=== PATIENT | male | born 1975 | race Caucasian/White ===

== ENCOUNTER 2018-09-10 17:26 | Emergency (ER) | payer MEDICAID ==
[~2018-09-10] VITALS: Ht 167.6 cm; Wt 81.9 kg
[~2018-09-10 17:26] MED LIST: IBUP-1542 PO
[2018-09-10 18:34] VITALS: Ht 167.6 cm; Wt 81.9 kg
[2018-09-10] MEDS ORDERED: KETOROLAC 60 MG INJ IM STA (21:23)
[2018-09-10] MEDS ORDERED: DEXAMETHASONE 10 MG/ML 1 ML INJ IM ONE (21:30)
[2018-09-10] MEDS ORDERED: traMADol 50 MG TAB PO ONE (21:30)
[2018-09-10] MEDS ORDERED: NAPR-985 PO (22:45)
[2018-09-10] MEDS ORDERED: AMOX1TAB10 PO (22:45)
[2018-09-10 23:01] VITALS: BP 123/78; PULSE 57; RESP 18
--- NOTE | 2018-09-11 00:20 | ERD ---
ER Documentation Chief Complaint Chief Complaint STATES LT JAW PAIN AND FEELS HOT SINCE YESTERDAY HPI History of Present Illness: 43-year-old male with no past medical history coming in today with complaint of left sided face pain. Patient reports he fell at his inside of his mouth is warm since yesterday. Denies decreased range of motion with jaw. No drooling noted. Denies chills. Denies chest pain, palpitations, shortness of breath. At home pharmacological/nonpharmacological treatment for symptoms: Denies Denies social concerns; Denies recent foreign travel ROS All systems reviewed and are negative except as per history of present illness. Medications Home Meds Active Scripts Amoxicillin/Potassium Clav (Amox-Clav 875-125 mg Tablet) 875-125 mg Tab, 1 TAB PO BID for BUCCAL INFECTION for 7 Days, #14 TAB Prov:HILARIO LUNA NP 09/10/18 Naproxen* (Naprosyn*) 500 Mg Tablet, 500 MG PO BID PRN for PAIN AND/OR INFLAMMATION, #30 TAB Prov:HILARIO LUNA NP 09/10/18 Ibuprofen* (Motrin*) 600 Mg Tab, 600 MG PO Q6, #30 TAB Prov:GLENN VALLE 05/11/15 Allergies Allergies: Coded Allergies: No Known Allergy (Unverified , 05/11/15) PMhx/Soc Medical and Surgical Hx: pt denies Medical Hx, pt denies Surgical Hx History of Surgery: No Hx Neurological Disorder: No Hx Respiratory Disorders: No Hx Cardiac Disorders: No Hx Psychiatric Problems: No Hx Miscellaneous Medical Probl: No Hx Alcohol Use: No Hx Substance Use: No Hx Tobacco Use: No Smoking Status: Never smoker FmHx Family History: diabetes; No coronary disease Physical Exam Vitals Vital Signs Date Temp Pulse Resp B/P (MAP) Pulse Ox O2 O2 Flow FiO2 Time Delivery Rate 09/10/18 98.5 57 18 123/78 98 Room Air 23:01 (93) 09/10/18 97.6 65 18 124/77 98 18:34 (93) Physical Exam Const: No acute distress Head: Atraumatic Eyes: Normal Conjunctiva ENT: Normal External Ears, Nose; tenderness to palpation to left bugle space inside of mouth, mild erythema, no cellulitis, no warmth, no fluctuance Neck: Full range of motion. No meningismus. Resp: Clear to auscultation bilaterally Cardio: Regular rate and rhythm, no murmurs Abd: Soft, non tender, non distended. Normal bowel sounds Skin: No petechiae or rashes Back: No midline or flank tenderness Ext: No cyanosis, or edema Neur: Awake and alert Psych: Normal Mood and Affect Results 24 hrs Current Medications Medications Dose Sig/Alphonso Start Time Status Last (Trade) Ordered Route PRN Stop Time Admin Dose Reason Admin 10 mg ONCE ONCE 09/10/18 DC 09/10/18 Dexamethasone IM 21:30 09/10/18 21:29 (Decadron) 21:31 Ketorolac 60 mg ONCE STAT 09/10/18 DC 09/10/18 Tromethamine IM 21:23 09/10/18 21:29 (Toradol) 21:25 Tramadol 50 mg ONCE ONCE 09/10/18 DC 09/10/18 HCl PO 21:30 09/10/18 21:30 (Ultram) 21:31 Procedures/MDM ED course includes a thorough examination and history. Medications: Ketorolac, dexamethasone Imaging: Labs: Low suspicion for life-threatening medical emergency. Low suspicion for infectious emergency that requires hospitalization or immediate surgical intervention. Low suspicion for Ajit angina. Low suspicion for deep tissue infection. Otherwise healthy patient presenting with constellation of symptoms likely representing uncomplicated mouth infection/canker sore as characterized by history, physical exam findings. Patient reassessment: Patient hemodynamically stable. No respiratory distress, otherwise relatively well appearing and nontoxic. Disposition given. Patient educated on diagnoses, prescriptions, follow-up care, return precautions. Strict return precautions given for worsening condition; questions answered discharge. Disposition for discharge with followup in 2 days with PCP/clinic. Departure Diagnosis: Primary Impression: Infection of buccal space Condition: Stable Patient Instructions: Your Mouth: Keeping It Healthy Referrals: COMMUNITY CLINICS YOU HAVE RECEIVED A MEDICAL SCREENING EXAM AND THE RESULTS INDICATE THAT YOU DO NOT HAVE A CONDITION THAT REQUIRES URGENT TREATMENT IN THE EMERGENCY DEPARTMENT. FURTHER EVALUATION AND TREATMENT OF YOUR CONDITION CAN WAIT UNTIL YOU ARE SEEN IN YOUR DOCTORS OFFICE WITHIN THE NEXT 1-2 DAYS. IT IS YOUR RESPONSIBILITY TO MAKE AN APPOINTMENT FOR FOLOW-UP CARE. IF YOU HAVE A PRIMARY DOCTOR --you should call your primary doctor and schedule an appointment IF YOU DO NOT HAVE A PRIMARY DOCTOR YOU CAN CALL OUR PHYSICIAN REFERRAL HOTLINE AT IF YOU CAN NOT AFFORD TO SEE A PHYSICIAN YOU CAN CHOSE FROM THE FOLLOWING [facility] [address] [facility] [address] [facility] [address] [facility] [facility] [address] [facility] [facility] [address] [facility]. [facility] [address] [facility]. [facility] YOU HAVE RECEIVED A MEDICAL SCREENING EXAM AND THE RESULTS INDICATE THAT YOU DO NOT HAVE A CONDITION THAT REQUIRES URGENT TREATMENT IN THE EMERGENCY DEPARTMENT. FURTHER EVALUATION AND TREATMENT OF YOUR CONDITION CAN WAIT UNTIL YOU ARE SEEN IN YOUR DOCTORS OFFICE WITHIN THE NEXT 1-2 DAYS. IT IS YOUR RESPONSIBILITY TO MAKE AN APPOINTMENT FOR FOLOW-UP CARE. IF YOU HAVE A PRIMARY DOCTOR --you should call your primary doctor and schedule and appointment IF YOU DO NOT HAVE A PRIMARY DOCTOR YOU CAN CALL OUR PHYSICIAN REFERRAL HOTLINE AT . IF YOU CAN NOT AFFORD TO SEE A PHYSICIAN YOU CAN CHOSE FROM THE FOLLOWING [facility]: [facility] [address] [place] [address] [facility] [address] [place] [address] [facility] [address] [place] [address] Additional Instructions: Thank you very much for allowing us to participate in your care. Your health and safety is our top priority at [facility]. It is important to read all discharge instructions and education provided in your discharge packet. Call your primary care doctor TOMORROW for an appointment during the next 2-4 days and bring all the information and medications prescribed. Have prescriptions filled and follow precisely the directions on the label. If the symptoms get worse and your provider is unavailable, return to the Emergency Department immediately. HILARIO LUNA NP September 11, 2018 00:20
== END 2018-09-10 23:01 | disposition home or self-care (01) ==
LOC: FTE 17:26
DX: B37.0 Candidal stomatitis (principal)
CPT/HCPCS: 96372; J1100; J1885; Z7502; Z7610

== ENCOUNTER 2018-09-19 08:03 | Emergency (ER) | payer MEDICAID ==
[~2018-09-19] VITALS: Wt 78.0 kg
[~2018-09-19 08:03] MED LIST changes: +AMOX1TAB10 PO; +NAPR-985 PO
[2018-09-19] MEDS ORDERED: ONDANSETRON 4 MG INJ IV STA (08:49)
[2018-09-19] MEDS ORDERED: SOD CHLORIDE 0.9% 1,000 ML IV STA (08:49)
[2018-09-19] MEDS ORDERED: FAMOTIDINE 20 MG INJ IV STA (08:49)
[2018-09-19] MEDS ORDERED: morphine 4 MG/ML VIAL IV STA (08:49)
--- NOTE | 2018-09-19 09:54 | ERD ---
ER Documentation Chief Complaint Chief Complaint upper quadrant abd pain for 2 wks with nausea no vomiting. no diarrhea. HPI This is a 43-year-old male with no previous medical problems who presents to the ER for evaluation of abdominal pain. The patient states he has had abdominal pain on and off for the past 2 weeks. The patient localizes his abdominal pain to the upper portion of the abdomen describes as a sharp pain sometimes worse with movement and heavy lifting. The patient denies any nausea, vomiting, chest pain or shortness of breath associated with this. He denies any relieving factors and came to the ER for evaluation. ROS All systems reviewed and are negative except as per history of present illness. Medications Home Meds Active Scripts Amoxicillin/Potassium Clav (Amox-Clav 875-125 mg Tablet) 875-125 mg Tab, 1 TAB PO BID for BUCCAL INFECTION for 7 Days, #14 TAB Prov:HILARIO LUNA V RN MANAGED CARE 09/10/18 Naproxen* (Naprosyn*) 500 Mg Tablet, 500 MG PO BID PRN for PAIN AND/OR INFLAMMATION, #30 TAB Prov:HILARIO LUNA V RN MANAGED CARE 09/10/18 Ibuprofen* (Motrin*) 600 Mg Tab, 600 MG PO Q6, #30 TAB Prov:GLENN VALLE 05/11/15 Allergies Allergies: Coded Allergies: No Known Allergy (Unverified , 05/11/15) PMhx/Soc History of Surgery: No Hx Neurological Disorder: No Hx Respiratory Disorders: No Hx Cardiac Disorders: No Hx Psychiatric Problems: No Hx Miscellaneous Medical Probl: No Hx Alcohol Use: Yes (socially) Hx Substance Use: No Hx Tobacco Use: No Smoking Status: Never smoker Physical Exam Vitals Vital Signs Date Temp Pulse Resp B/P (MAP) Pulse Ox O2 O2 Flow FiO2 Time Delivery Rate 09/19/18 97.5 61 18 135/79 98 08:05 (97) Physical Exam INITIAL VITAL SIGNS: Reviewed by me GENERAL: The patient is well developed and appropriate for usual state of health in no apparent distress HEENT: Pupils equal, round, and reactive to light. EOMI. There is no scleral icterus. NECK: C-spine is soft and supple, there is no meningismus. There is no cervical lymphadenopathy. LUNGS: Clear to auscultation bilaterally. There are no rales, wheezes or rhonchi. HEART: Regular rate and rhythm, no murmurs, clicks, rubs or gallops. ABDOMEN: Epigastric tenderness to palpation, negative Linares sign, otherwise soft, non-tender, non-distended. There are bowel sounds in all four quadrants. No rebound or guarding. EXTREMITIES: There is no peripheral cyanosis or edema. No focal swelling or erythema. NEUROLOGICAL: The patient moves all four extremities with 5/5 strength. Cranial nerves II - XII are intact. Normal gait. Alert and oriented SKIN: There is no apparent rash or petechiae. HEME/LYMPHATIC: There is no evidence of excessive bruising or lymphedema. PSYCHIATRIC: The patient does not appear anxious or depressed. Result Diagram: 09/19/18 0853 09/19/18 0853 Results 24 hrs Laboratory Tests Test 09/19/18 08:53 09/19/18 08:55 White Blood Count 6.0 10^3/ul Red Blood Count 5.32 10^6/ul Hemoglobin 15.6 g/dl Hematocrit 46.2 % Mean Corpuscular Volume 86.8 fl Mean Corpuscular Hemoglobin 29.3 pg Mean Corpuscular Hemoglobin Concent 33.8 g/dl Red Cell Distribution Width 13.1 % Platelet Count 200 10^3/UL Mean Platelet Volume 10.9 fl Immature Granulocytes % 0.300 % Neutrophils % 57.7 % Lymphocytes % 31.2 % Monocytes % 8.8 % Eosinophils % 1.5 % Basophils % 0.5 % Nucleated Red Blood Cells % 0.0 /100WBC Immature Granulocytes # 0.020 10^3/ul Neutrophils # 3.5 10^3/ul Lymphocytes # 1.9 10^3/ul Monocytes # 0.5 10^3/ul Eosinophils # 0.1 10^3/ul Basophils # 0.0 10^3/ul Nucleated Red Blood Cells # 0.0 10^3/ul Sodium Level 144 mmol/L Potassium Level 4.4 mmol/L Chloride Level 110 mmol/L Carbon Dioxide Level 27 mmol/L Anion Gap 7 Blood Urea Nitrogen 21 mg/dl Creatinine 0.92 mg/dl Est Glomerular Filtrat Rate mL/min > 60 mL/min Glucose Level 78 mg/dl Calcium Level 9.0 mg/dl Total Bilirubin 0.4 mg/dl Direct Bilirubin 0.00 mg/dl Indirect Bilirubin 0.4 mg/dl Aspartate Amino Transf (AST/SGOT) 28 IU/L Alanine Aminotransferase (ALT/SGPT) 47 IU/L Alkaline Phosphatase 46 IU/L Troponin I < 0.012 ng/ml Total Protein 7.4 g/dl Albumin 4.2 g/dl Globulin 3.20 g/dl Albumin/Globulin Ratio 1.31 Lipase 82 U/L Urine Color STRAW Urine Clarity CLEAR Urine pH 5.0 Urine Specific [place] 1.015 Urine Ketones NEGATIVE mg/dL Urine Nitrite NEGATIVE mg/dL Urine Bilirubin NEGATIVE mg/dL Urine Urobilinogen NEGATIVE mg/dL Urine Leukocyte Esterase NEGATIVE [place]/ul Urine Hemoglobin NEGATIVE mg/dL Urine Glucose NEGATIVE mg/dL Urine Total Protein NEGATIVE mg/dl Current Medications Medications Dose Sig/Alphonso Start Time Status Last (Trade) Ordered Route PRN Stop Time Admin Dose Reason Admin Sodium 1,000 ml @ Q1H STAT 09/19/18 DC 09/19/18 Chloride 1,000 mls/hr IV 08:49 09:09 09/19/18 09:48 Morphine 4 mg ONCE STAT 09/19/18 DC 09/19/18 Sulfate IV 08:49 09:09 (morphine) 09/19/18 08:51 Ondansetron 4 mg ONCE STAT 09/19/18 DC 09/19/18 HCl (Zofran IV 08:49 09:09 Inj) 09/19/18 08:51 Famotidine 20 mg ONCE STAT 09/19/18 DC 09/19/18 (Pepcid Iv) IV 08:49 09:09 09/19/18 08:51 Procedures/MDM CT abdomen pelvis without: No acute process This 43-year-old male presents the ER for evaluation of abdominal pain. On my examination the patient did have some epigastric tenderness to palpation however the patient was afebrile, nontoxic-appearing with a nondistended abdomen. The patient did have lab work drawn which is normal. He was given morphine, Pepcid, IV fluids and Zofran. His liver function tests are normal, lipase is normal and troponin is negative. CT the abdomen pelvis was obtained and shows no acute process. The patient did state he was feeling much better my reevaluation is possible this patient is suffering from gastritis. The patient does state that he drinks coffee and alcohol and advised him to discontinue the use of caffeine and alcohol as this can make his pain worse. He was advised to change his diet and patient will be discharged home with a prescription for Zantac and Zofran with strict return precautions. Differential diagnoses entertained was broad with potential high acuity. Patient has been evaluated for appendicitis, cholecystitis, and other high risk medical and surgical causes of abdominal pain. Ultimately the patient's evaluation is nondiagnostic. Based on the patient's lack of risk factors, as well as the patient's clinical, laboratory, and imaging data, the patient appears to be low risk for these high risk causes of abdominal pain. Departure Diagnosis: Primary Impression: Abdominal pain Additional Impression: Acute gastritis Condition: Fair ANABELLA ELISE DO September 19, 2018 09:54
[2018-09-19] MEDS ORDERED: ONDA4TAB14 PO (09:55)
[2018-09-19] MEDS ORDERED: RANI150T35 PO (09:55)
[2018-09-19 09:59] VITALS: BP 123/84; PULSE 62; RESP 16
== END 2018-09-19 10:08 | disposition home or self-care (01) ==
LOC: E/R 08:03
DX: K29.00 Acute gastritis without bleeding (principal)
CPT/HCPCS: 36415; 74176; 80053; 81003; 83690; 84484; 85025; 96374; 96375; J2270; J2405; J7030; Z7502; Z7610